=== PATIENT | male | born 1955 | race Caucasian/White ===

== ENCOUNTER → 2017-02-25 | Outpatient (CLI) | payer OTHER ==
[~2017-02-25] MED LIST: REGADENOSON 0.4 MG/5 ML DISP.SYRIN. IV ONE
--- NOTE | 2017-02-25 17:05 | PCVCIMAG ---
APPROVED REPORT Study performed: 02/25/2017 07:51:37 EXAM: Comprehensive 2D, Doppler, and color-flow Echocardiogram Patient Location: Echo lab Status: routine BSA: 2.43 HR: 63 bpmBP: 140/80 mmHg Rhythm: LBBB Other Information Study Quality: Technically Limited Indications LBBB. CAD. Ischemic cardiomyopathy. Stent. Pre op Surgery Clearance. Diabetes. 2D Dimensions IVSd: 15.24 (7-11mm)LVOT Diam: 23.35 (18-24mm) LVDd: 52.60 mm PWd: 15.00 (7-11mm)Ascending Ao: 35.75 (22-36mm) LVDs: 42.47 (25-40mm) Left Atrium: 50.24 (27-40mm) Aortic Root: 35.46 mm LV Single Plane 4CH: 35.98 % LV Single Plane 2CH: 38.40 %[place]eda's LVEF: 37.19 % Biplane EF: 38.1 % Volumes Left Atrial Volume (Systole) Single Plane 4CH: 63.59 mLSingle Plane 2CH: 70.28 mL LA ESV Index: 32.00 mL/m2 Aortic Valve AoV Peak Silver.: 1.41 m/s AO Peak Gr.: 7.99 mmHgLVOT Max P.35 mmHg LVOT Max V: 1.04 m/s REINA Vmax: 3.16 cm2 Mitral Valve E/A Ratio: 0.4 MV Decel. Time: 237.71 ms MV E Max Silver.: 0.44 m/s MV A Silver.: 1.11 m/s TDI E/Lateral E': 4.89E/Medial E': 11.00 Medial E' Silver.: 0.04 m/s Lateral E' Silver.: 0.09 m/s Pulmonary Valve PV Peak Gr.: 2.44 mmHg Left Ventricle The left ventricle is normal size. Mild concentric left ventricular hypertrophy. Left ventricular ejection fraction is moderately decreased. LVEF is 40-45% Grade II - pseudonormal filling dynamics. Right Ventricle The right ventricle is normal size. The right ventricular systolic function is normal. Atria The left atrium size is normal. The right atrium size is normal. Aortic Valve The aortic valve is normal in structure. No aortic regurgitation is present. There is no aortic valvular stenosis. Mitral Valve The mitral valve is normal in structure. There is no mitral valve regurgitation noted. No evidence of mitral valve stenosis. Tricuspid Valve The tricuspid valve is normal in structure. There is no tricuspid valve regurgitation noted. Pulmonic Valve The pulmonary valve is normal in structure. There is no pulmonic valvular regurgitation. Great Vessels The aortic root is normal in size. IVC is normal in size and collapses with >50% inspiration Pericardium There is no pericardial effusion. <Conclusion> LVEF is 40-45% Grade II - pseudonormal filling dynamics. The right ventricle is normal size. The aortic valve is normal in structure. There is no mitral valve regurgitation noted. There is no tricuspid valve regurgitation noted. There is no pericardial effusion.
--- NOTE | 2017-02-25 17:10 | PCVCIMAG ---
APPROVED REPORT Exam: Nuclear Stress Test Indication: CAD , Pre-Operative CV evaluation Patient Location: Out-Patient Stress Nurse: Ivette Espinoza RN MT Tech:Agnes BECKIE Mckeon Ht: 5 ft 10 in Wt: 285 lbs BSA: 2.43 m2 HR: 59 bpm BP: 150/74 mmHg BMI: 40.8 Rhythm: Sinus Bradycardia, LBBB Medical History Medical History: HTN, Hyperlipidemia, CAD, Age Medications: ASA, Atorvastain, Lisinopril, Bystolic, Nitro Allergies: Sulfa Previous Cardiac Procedures: PCI Pretest Chest Pain Characteristics: Exertional Chest pain Exercise History: Physically active Physical Disabilities: Knees Meds Held (24 hrs): Bystolic NM EXAM: Myocardial Perfusion REST/STRESS Imaging Protocol: Rest Tc-99m/Stress Tc-99m 1 day Resting Data Rest SPECT myocardial perfusion imaging was performed in supine position 45 minutes following the intravenous injection of 15.5 mCi of Tc-99m Sestamibi. Time of rest injection: 829 Date: 02/25/2017 Administration Route: IV Administration Site: Left AC Pharmacologic Stress Pharmacologic stress test was performed by injecting Regadenoson 0.4 mg IV push followed by the intravenous injection of 47.4 mCi of Tc-99m Sestamibi. Time of stress injection: 944 Date: 02/25/2017 Administration Route: IV Administration Site: Left AC Gated Stress SPECT was performed 45 minutes after stress injection. The images were gated to evaluate regional wall motion and calculate left ventricular ejection fraction. Study Quality Study: Good Study Data Post stress, the left ventricular ejection was 46%.. SSS: 0 SRS: 2 SDS: 0 TID = 1.11. 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 No evidence of stress induced ischemia. Wall Motion Mildly decreased left ventricular systolic function. 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 No evidence of stress induced ischemia. No change since January 2016 except ejection fraction has shown mild increase. Interpreted by: Ronald Corral MD Electronically Approved: 02/25/2017 14:09:26 Stress Test Details Stress Test: Pharmacologic stress testing performed using 0.4 mg of regadenoson per 5 mL given IV over 10 seconds. Reason for pharmacologic stress test: physical limitation. HR Resting HR: 59 bpmMax Heart Rate (APMHR): 161 bpm Max HR Achieved: 85 bpmTarget HR (85% APMHR): 136 bpm % of APMHR: 52 Recovery HR: 75 bpm BP Resting BP: 150/74 mmHg Max BP: 124/62 mmHg ECG Resting ECG: Sinus Jelani, LBBB Stress ECG: Sinus Rhythm, LBBB Recovery ECG: Sinus Rhythm, LBBB Clinical Reason for Termination: Completed protocol Stress Symptoms: Chest pain, Dyspnea Exercise duration: 0 min 55 sec Symptoms resolved during recovery. Stress ECG Conclusion non diagnostic <Conclusion> non diagnostic
== END | disposition home or self-care (01) ==
LOC: PCVCIMAG 07:37
PROVIDERS: ATTEND Internal Medicine Cardiovascular Disease
DX: Z01.810 Encounter for preprocedural cardiovascular examination (principal); I25.10 Atherosclerotic heart disease of native coronary artery without angina pectoris; E11.9 Type 2 diabetes mellitus without complications; I44.7 Left bundle-branch block, unspecified; I42.9 Cardiomyopathy, unspecified; K52.89 Other specified noninfective gastroenteritis and colitis; E78.00 Pure hypercholesterolemia, unspecified; I10 Essential (primary) hypertension; Z95.5 Presence of coronary angioplasty implant and graft; Z79.82 Long term (current) use of aspirin; Z88.2 Allergy status to sulfonamides
CPT/HCPCS: 78452; 93017; 93306; A9500; J2785

== ENCOUNTER → 2018-04-21 | Outpatient (CLI) | payer OTHER ==
--- NOTE | 2018-04-21 16:28 | PCVCIMAG ---
APPROVED REPORT Study performed: 04/21/2018 15:16:55 Exam: Stress Echocardiogram Indication: CAD s/p AR, Hyperlipidemia, Hypertension Patient Location: Echo lab Stress Nurse: Cierra Faye RN Status: routine Ht: 5 ft 10 in HR: 100 bpm BP: 130/80 mmHg Rhythm: NSR Medical History Medical History: CAD s/p stent, myocardial infarction, cardiomyopathy Procedure The patient underwent an Exercise Stress Test using the Swapnil Protocol. Blood pressure, heart rate, and EKG were monitored. An Echocardiogram was performed by computed tomography technician in four stages in quad fashion. At peak stress, four selected images were obtained and placed side by side with resting images for comparison. Stress Test Details Stress Test: Exercise stress testing was performed using a Swapnil protocol. HR Resting HR: 100 bpmMax Heart Rate (APMHR): 159 bpm Max HR Achieved: 148 bpmTarget HR (85% APMHR): 135 bpm % of APMHR: 93 Recovery HR: 111 bpm HR response to stress: Normal HR response to stress BP Resting BP: 130/80 mmHg Max BP: 162/80 mmHg Recovery BP: 148/74 mmHg BP response to stress: Normal blood pressure response to stress. ECG Resting ECG: LBBB, PVC's Stress ECG: LBBB, PVC's Arrhythmia: VPC's, [place] Recovery ECG: Sinus Rhythm, LBBB Recovery Arrhythmia: VPC Clinical Reason for Termination: Maximal effort Exercise duration: 6 min sec Highest Stage Achieved: Stage 2: 2.5 mph at 12% grade. Exercise capacity: 7.00 METs Overall Exercise Capacity for Age: Poor Pre-Stress Echo The resting Echocardiogram showed abnormal left ventricular contractility with an estimated Ejection Fraction of about 40-45%. Inferior wall akinesis consistent with old myocardial infarction. Abnormal septal motion due to LBBB Post-Stress Echo The stress Echocardiogram showed abnormal left ventricular contractility with an estimated Ejection Fraction of about 50%. Inferior wall remains akinetic. No new regional wall motion abnormalities. Conclusion Clinical Response: Non-ischemic Exercise Capacity: Below Average Stress ECG Response: Indeterminant Stress Echo Images: Non-ischemic Other Information Study Quality: Adequate
== END | disposition home or self-care (01) ==
LOC: PCVCIMAG 14:18
PROVIDERS: ATTEND Internal Medicine Cardiovascular Disease
DX: I25.119 Atherosclerotic heart disease of native coronary artery with unspecified angina pectoris (principal); E11.9 Type 2 diabetes mellitus without complications; R07.89 Other chest pain; I42.9 Cardiomyopathy, unspecified; I10 Essential (primary) hypertension; E78.00 Pure hypercholesterolemia, unspecified; E78.5 Hyperlipidemia, unspecified; I44.7 Left bundle-branch block, unspecified
CPT/HCPCS: 93325; 93351

== ENCOUNTER → 2019-06-02 | Outpatient (CLI) | payer OTHER ==
--- NOTE | 2019-06-02 12:56 | PCVCIMAG ---
APPROVED REPORT Study performed: 06/02/2019 11:36:26 Exam: Stress Echocardiogram Indication: CAD s/p NV,PCI,LAD lesion Patient Location: Echo lab Stress Nurse: Ivette Espinoza RN, Cierra Faye RN Room #: 2 Status: routine Ht: 5 ft 10 in HR: 72 bpm BP: 140/84 mmHg Rhythm: LBBB Medical History Medical History: CAD s/p NV,Stent to RCA,Isch CM, Cardiac Risk Factors: HTN, Hyperlipidemia, DM Previous Cardiac Procedures: PCI Exercise History: Sedentary Physical Disabilities: Knees Procedure The patient underwent an Exercise Stress Test using the Swapnil Protocol. Blood pressure, heart rate, and EKG were monitored. An Echocardiogram was performed by agricultural engineering technician in four stages in quad fashion. At peak stress, four selected images were obtained and placed side by side with resting images for comparison. Stress Test Details Stress Test: Exercise stress testing was performed using a Swapnil protocol. HR Resting HR: 72 bpmMax Heart Rate (APMHR): 158 bpm Max HR Achieved: 148 bpmTarget HR (85% APMHR): 134 bpm % of APMHR: 93 Recovery HR: 90 bpm HR response to stress: Normal HR response to stress BP Resting BP: 140/84 mmHg Max BP: 178/74 mmHg Recovery BP: 148/78 mmHg BP response to stress: Normal blood pressure response to stress. ECG Resting ECG: LBBB Stress ECG: LBBB ST Change: Nondiagnostic V-pacing or LBBB Arrhythmia: Rare PVC,PAC Recovery ECG: Sinus Rhythm, LBBB Recovery ST Change: Nondiagnostic V-pacing or LBBB Recovery Arrhythmia: Rare PVCs Clinical Reason for Termination: Maximal effort Stress Symptoms: fatigue,dyspnea Exercise duration: 6 min 24 sec Highest Stage Achieved: Stage 3: 3.4 mph at 14% grade. Exercise capacity: 8.2 METs Overall Exercise Capacity for Age: Poor Scale: Sedentary Angina Score: None No complications. Pre-Stress Echo The resting Echocardiogram showed abnormal left ventricular contractility with an estimated Ejection Fraction of about 35-40%. Septal wall discordance is seen with the LBBB, inferior, apical akinesis is seen from known old NV. Global hypokinesis is seen. Post-Stress Echo The stress Echocardiogram showed abnormal left ventricular contractility with an estimated Ejection Fraction of about 40-45%. Some improvement in contractility is seen except in area of old NV Conclusion Clinical Response: Non-ischemic Exercise Capacity: Below Average Stress ECG Response: Indeterminant Stress Echo Images: Non-ischemic No echocardiographic evidence for exercise induced ischemia. Normal stress echocardiogram with maximal exercise stress. The EKG is nondiagnostic due to LBBB Normal color doppler. No stenosis or regurgitation seen in the mitral, aortic,tricuspid or pulmonic valves. Other Information Study Quality: Technically Difficult <Conclusion> No echocardiographic evidence for exercise induced ischemia. Normal stress echocardiogram with maximal exercise stress. The EKG is nondiagnostic due to LBBB Normal color doppler. No stenosis or regurgitation seen in the mitral, aortic,tricuspid or pulmonic valves.
== END | disposition home or self-care (01) ==
LOC: PCVCIMAG 10:33
PROVIDERS: ATTEND Internal Medicine Cardiovascular Disease
DX: I25.10 Atherosclerotic heart disease of native coronary artery without angina pectoris (principal); I10 Essential (primary) hypertension; E11.9 Type 2 diabetes mellitus without complications; I42.9 Cardiomyopathy, unspecified
CPT/HCPCS: 93325; 93351